=== PATIENT | male | born 1980 | race Caucasian/White ===

== ENCOUNTER → 2017-04-07 | Outpatient (CLI) | payer BC ==
[~2017-04-07] MED LIST: ALBU1AER9; LRT5 PO
--- NOTE | 2017-04-08 06:36 | SPLIT NIGHT TECHNICIAN REPORT ---
[facility] Split Night Polysomnogram - Fence Rider Report Study date: 04/07/2017 Referring Physician: DR DOOLEY Name: SHAVON HOWE Fence Rider: JENN Andre. Date of : 1980 Height: 36 years, Height 5' 11" Sex: Male Weight: 322 lbs Age: 36 Neck Circum: 19.75 INCHES BMI: Medications: 44.9 TRIAMTERENCE-HCTZ 37.5-25 MG, COZAAR 50 MG, FLONASE 50 MCG/ACT, PROAIR HFA 108 90 BASE Patient History PATIENT HAS HISTORY OF EXCESSIVE DAYTIME SLEEPINESS, TROUBLE STAYING AWAKE AT WORK AND SNORING. HE SAID THAT HE RECENTLY HAD A HOME SLEEP STUDY DONE BUT I HAD NO ACCESS TO THE RESULTS. HE IS HERE TODAY FOR AN EVALUATION FOR PATTI AND POSSIBLE SPLIT-STUDY. ESS = 14 RM 7 Parameters Monitored NPSG: E1-M2, E2-M1, Fp1-M2, Fp2-M1, F3-M2, F4-M2, F4-M1, C3-M2, C4-M2, C4-M1, O1-M2, O2-M2, O2-M1, T3-M2, T4-M1, P3-M2, P4-M1, CHIN1, CHIN2, HR, EKG, Legs, PFLOW, SNOR, FLOW, CFLOW, Tidal Volume, THOR, ABDO, SpO2, PLTH, CPRESS, ETCO2 Wave, ETCO2, pH SLEEP SUMMARY DATA DIAGNOSTIC TREATMENT Lights Out: 10:04:05 PM 12:41:05 AM Lights On: 12:30:05 AM 5:53:35 AM Total Recording Time (TRT): 146.5 min. 313.0 min. Total Sleep Time (TST): 124.5 min. 263.0 min. NREM Time: 124.5 min. 196.5 min. REM Time: 0.0 min. 66.5 min. Sleep Period Time (SPT): 130.5 min. 277.5 min. Sleep Efficiency (SE): 85 % 84 % Sleep Latency: 15.5 min. 34.0 min. Arousal Index: 27.0 4.3 PAP Treatment Levels: 4, 8, 9, 10, 11, 12 * Optimal Pressure(s) SLEEP STAGING DATA DIAGNOSTIC TREATMENT Duration (min) TST % Duration (min) TST % Stage Wake: 21.5 min. -- 50.0 min. -- WASO: 6.0 min. -- 14.5 min. -- NREM: 124.5 min. 100 % 196.5 min. 75 % Stage N1: 5.5 min. 4 % 8.5 min. 3 % Stage N2: 119.0 min. 96 % 160.0 min. 61 % Stage N3: 0.0 min. 0 % 28.0 min. 11 % REM: 0.0 min. 0 % 66.5 min. 25 % POSITIONAL DATA Event Count Index Event Count Index Supine: 2 120.0 0 0.0 Supine NREM: 2 120.0 0 0.0 Supine REM: N/A N/A N/A N/A Non-Supine: 234 113.7 16 4.8 Non-Supine NREM: 234 113.7 9 4.0 Non-Supine REM: N/A N/A 7 6.3 AROUSAL SUMMARY DATA: Event Count Index Event Count Index Apnea Arousals: 20 28.9 1 0.9 Hypopnea Arousals: 26 12.5 0 0.0 Snore Arousals: 7 3.4 1 0.2 PLM Arousals: 0 0.0 2 0.5 Non-Specific Arousals: 4 1.9 11 2.5 Total Arousals: 56 27.0 19 4.3 MYOCLONUS (PLM) Event Count Index Event Count Index PLM: 0 0.0 3 0.7 PLM AROUSAL: 0 0.0 2 0.5 PLM W/O AROUSAL 0 0.0 1 0.2 PLM W/RESP EVENT 0 0.0 0 0.0 MYOCLONUS (PLM) Event Count Index Event Count Index LM: 0 13.5 22 5.0 LM AROUSAL: 0 0.0 5 1.1 LM W/O AROUSAL LM W/RESP EVENT LM NON SPECIFIC 10 4.8 17 3.9 HEART RATE DATA DIAGNOSTIC TREATMENT Sleep (bpm): 74 78 REM (bpm): N/A 92 NREM (bpm): 85 92 Tachycardia Count: 0 0 Tachycardia Duration: 0.00 0 Bradycardia Count: 0 0 Bradycardia Duration: 0.00 0 DIAGNOSTIC PORTION TREATMENT PORTION RESPIRATORY DATA Event Count Index Event Count Index AHI: -- 113.7 -- 3.7 RDI: -- 113.7 -- 4 Obstructive Apnea: 59 28.4 0 0.0 Central Apnea: 0 0.0 4 0.9 Mixed Apnea: 1 0.5 0 0.0 Hypopnea: 176 84.8 12 2.7 RERA: 0 0.0 0 0.0 Total Apneas: 60 28.9 4 0.9 RESPIRATORY DATA REM NREM SLEEP REM NREM SLEEP Supine Position: Obstructive Apneas: N/A 0 0 N/A 0 0 Central Apneas: N/A 0 0 N/A 0 0 Mixed Apneas: N/A 0 0 N/A 0 0 Hypopneas: N/A 2 2 N/A 0 0 RERA N/A 0 0 N/A 0 0 Total Supine Events: N/A 2 2 N/A 0 0 Supine AHI: N/A 120.0 120.0 N/A 0.0 0.0 Supine RDI: N/A 120.0 120.0 N/A 0.0 0.0 REM NREM SLEEP REM NREM SLEEP Non-Supine Position: Obstructive Apneas: N/A 59 59 0 0 0 Central Apneas: N/A 0 0 0 4 4 Mixed Apneas: N/A 1 1 0 0 0 Hypopneas: N/A 174 174 7 5 12 RERA N/A 0 0 0 0 0 Total Supine Events: N/A 234 234 7 9 16 Supine AHI: N/A 113.7 113.7 6.3 4.0 4.8 Supine RDI: N/A 113.7 113.7 6.3 4.0 4.8 OXYGEN DESTAURATION DATA: Event Count Index Event Count Index REM Desaturations: N/A N/A 8 7.2 NREM Desaturations: 250 120.5 9 2.7 SNORE DATA DIAGNOSTIC TREATMENT Snore Time: 17.7 1:15:05 AM Snore TST%: 7 9 Snore Arousal Count: 7 1 Snore Arousal Index: 3.4 0.2 Desaturation Event Summary: Minimum %SpO2 Event Count Mean/Min/Max Duration(sec.) Desaturation Index % Time In Bed > 90 208 18.6 / 7.8 / 41.5 40.0 68.2 86 - 90 180 18.2 / 6.8 / 29.5 131.3 18.0 81 - 85 1 21.3 / 21.3 / 21.3 1.6 8.1 76 - 80 0 N/A 0.0 5.5 71 - 75 0 N/A 0.0 0.4 66 - 70 0 N/A 0.0 0.0 61 - 65 0 N/A 0.0 0.0 56 - 60 0 N/A 0.0 0.0 51 - 55 0 N/A 0.0 0.0 < 50 0 N/A 0.0 0.0 OXYGEN SATURATION DATA DIAGNOSTIC TREATMENT SpO2 Mean Sleep: 85 % 92 % SpO2 Mean REM: N/A % 92 % SpO2 Mean NREM: 85 % 92 % SpO2 Minimum Sleep: 73 % 84 % SpO2 Minimum REM: N/A % 85 % SpO2 Minimum NREM: 73 % 84 % Time Below 90% (TST): 90.7 9.1 Time Below 88% (TST): 73.2 2.4 Total REM NREM Awake <50% 0.0 min. 0.0 min. 0.0 min. 0.0 min. 51 - 60% 0.0 min. 0.0 min. 0.0 min. 0.0 min. 61 - 70% 0.0 min. 0.0 min. 0.0 min. 0.0 min. 71 - 80% 26.6 min. 0.0 min. 26.3 min. 0.3 min. 81 - 90% 119.1 min. 8.7 min. 101.1 min. 9.2 min. 91 - 100% 312.1 min. 57.8 min. 193.2 min. 61.1 min. Average 90 92 89 92 Minimum SpO2 73 85 73 78 Desaturation Event Index 36.1 7.2 48.4 9.3 # Desat. Events below 89% 266 6 255 5 Time(%) with Saturation below 89% 19.6 0.3 18.3 1.0 Time(min.) with Saturation below 89% 89.9 1.6 83.9 4.5 Recording Fence Rider Comments: Mr. Howe slept in the right, left and supine positions. No cardiac arrhythmia noted. Leg movements noted. No bruxism noted. Snoring was noted and scored as a 5 on a scale of 1 through 5. (0=no snoring, 5=snoring loud enough to be heard through a closed door or down the [address] way) At 12:30 am Mr. Howe has met specific Split-Night criteria during the diagnostic portion of this study. CPAP was initiated at +4 CMH2O and up-titrated to an optimal level of +12 CMH2O, which nearly eliminated all respiratory events and snoring. A Resmed Air touch F20 full face size large mask was used during titration Mr. Howe awoke to use the restroom 0 times during the night. Mr. Howe stated I slept as well as I do when I am in my own bed. The final report will be interpreted and signed by a sleep physician. The completed physician report will then be placed in the patient medical record. Therapy Event: Therapy (cm H20) 0 4 8 9 10 11 12 Total Time at Pressure (min.) 146.0 8.7 54.6 44.3 44.4 22.1 138.4 TST at Pressure (min.) 124.5 0.0 19.3 44.3 43.9 21.1 134.4 # Periods 1 1 1 1 1 1 1 Sleep Onset (min.) 15.5 N/A 25.3 0.0 0.0 0.0 0.0 REM Onset (min.) N/A N/A N/A 37.2 0.0 N/A 45.4 Sleep Efficiency % 85 0 35 100 98 95 97 Wakefulness (%) 14.7 100.0 64.7 0.0 1.1 4.5 2.9 Wakefulness (min.) 21.5 8.7 35.3 0.0 0.5 1.0 4.0 NREM 1 (%) 3.8 0.0 8.2 0.0 5.6 2.3 0.7 NREM 1 (min.) 5.5 0.0 4.5 0.0 2.5 0.5 1.0 NREM 2 (%) 81.5 0.0 27.1 36.7 22.4 93.2 71.1 NREM 2 (min.) 119.0 0.0 14.8 16.2 10.0 20.6 98.4 NREM 3 (%) 0.0 0.0 0.0 47.4 0.0 0.0 5.1 NREM 3 (min.) 0.0 0.0 0.0 21.0 0.0 0.0 7.0 REM (%) 0.0 0.0 0.0 15.9 70.8 0.0 20.2 REM (min.) 0.0 0.0 0.0 7.0 31.5 0.0 28.0 # Arousals 56 N/A 7 2 2 2 6 Arousal Index 27.0 N/A 21.8 2.7 2.7 5.7 2.7 # Snore 553 N/A 129 226 56 132 197 Snore Index 266.5 N/A 401.7 306.2 76.5 374.7 88.0 AHI 113.7 N/A 21.8 6.8 4.1 0.0 0.4 AHI Supine 120.0 N/A N/A N/A N/A N/A 0.0 AHI Non-Supine 113.7 N/A 21.8 6.8 4.1 0.0 0.8 NREM AHI 113.7 N/A 21.8 1.6 4.8 0.0 0.0 REM AHI N/A N/A N/A 34.1 3.8 N/A 2.1 RDI 113.7 N/A 21.8 6.8 4.1 0.0 0.4 # Obstructive 59 N/A 0 0 0 0 0 # Central Ap 0 N/A 4 0 0 0 0 # Mixed 1 N/A 0 0 0 0 0 # Hypopneas 176 N/A 3 5 3 0 1 RERAS 0 N/A 0 0 0 0 0 Total Respiratory Events 236 N/A 7 5 3 0 1 Time Below SpO2 89.00% (min.) 81.4 0.0 2.0 1.5 0.4 0.0 0.2 Mean NREM SpO2 (%) 85 N/A 90 91 91 91 92 Mean REM SpO2 (%) N/A N/A N/A 89 92 N/A 93 Mean Sleep SpO2 (%) 85 N/A 90 91 92 91 92 Min NREM SpO2 (%) 73 N/A 84 87 87 90 88 Min REM SpO2 (%) N/A N/A N/A 85 87 N/A 89 Position Supine (min.) 1.0 0.0 0.0 0.0 0.0 0.0 60.9 Position Non-supine (min.) 123.5 0.0 19.3 44.3 43.9 21.1 73.5 LM Index Sleep 13.5 N/A 3.1 1.4 15.0 14.2 3.1 LM Index NREM 13.5 N/A 3.1 0.0 4.8 14.2 2.3 LM Index REM N/A N/A N/A 8.5 19.1 N/A 6.4 Mean Heart Rate (bpm) 74 N/A 72 77 82 76 79 Min Heart Rate (bpm) 61 N/A 59 61 64 63 63
--- NOTE | 2017-04-12 08:18 | Sleep Study ---
Sleep Study Report Date of Service: 04/07/2017 Sleep Study Report Clinical data: The patient is referred by Dr. Agudelo for a sleep study. He is a 36-year-old male with a BMI of 44.9. He has symptoms including snoring, daytime sleepiness , disturbed nocturnal sleep. He had an [place] score of 14 out of a possible 24. The patient had breathing problems following a surgical procedure and sleep apnea was suspected. This was an in-lab split night sleep study. Sleep architecture: During the diagnostic portion of the study the total sleep period was 130.5 minutes. The total sleep time was 124.5 minutes. The sleep efficiency was 85 percent. The sleep latency was 15.5 minutes. Sleep consisted of stage N1 4 percent, stage N2 96 percent, stage N3 0 percent, stage REM 0 percent. During the therapeutic portion of the study the patient's nocturnal events were treated with nasal CPAP. The total sleep period was 277.5 minutes. The total sleep time was 263 minutes. The sleep efficiency was 84 percent. The sleep latency was 34 minutes. Sleep consisted of stage N1 3 percent, stage N2 61 percent, stage N3 11 percent, stage REM 25 percent. Arousal data: During the diagnostic portion of the sleep study the patient had a total of 56 arousals including 20 apnea arousals, 26 hypopnea arousals, 7 snoring arousals, and 4 nonspecific arousals. The arousal index was 27. During the therapeutic portion of the study the patient had 15 arousals including 1 apnea arousal, 1 snoring arousal, 2 PLM arousals, and 11 nonspecific arousals. The arousal index was 4.3. PLM data: During the diagnostic portion of the study the patient had 0 periodic limb movements. During the therapeutic portion of the study he had only 3 periodic limb movements for an index of 0.7. EKG data: The underlying cardiac rhythm was normal sinus. The cardiac rates 74-92 beats per minute. Respiratory data: During the diagnostic portion of the study patient had a total of 236 respiratory events including 59 obstructive apneas, 1 mixed apnea, and 176 hypopneas. Hypopneas were scored according to the 4 percent desaturation rule. The apnea-hypopnea index was severely elevated at 113.7 events per hour. During the therapeutic portion of the study the patient's nocturnal events were treated with nasal CPAP up to a final pressure of 12 centimeters. The patient had a total of 16 respiratory events including 4 central apneas and 12 hypopneas. The apnea-hypopnea index was 3.7 events per hour. At the final pressure of 12 centimeters the apnea-hypopnea index was 0.4. He was at that pressure for 138.4 minutes. Oximetry data: During the diagnostic portion of the study the mean saturation was 85 percent. The minimum saturation was 73 percent. There was a total of 73.2 minutes less than 88 percent. During the therapeutic portion of the study the mean saturation was 92 percent. The minimum saturation was 84 percent. There was a total of 2.4 minutes with saturations less than 88 percent. Patent Lawyer comments: Patient slept on the right, left, and supine positions. No cardiac arrhythmia noted. No bruxism noted. Snoring was noted and scored as a 5 on a scale of 1 through 5. At 12:30 a.m. the patient met specific split night criteria during the diagnostic portion of the study. CPAP was initiated at 4 centimeters and up titrated to an optimal level of 12 centimeters which nearly eliminated all respiratory events and snoring. A ResMed air touch F 20 full face mask size large was used during titration. The patient did not awaken to use the restroom at night. Impressions: 1. Obstructive sleep apnea-severe Comments: Patient had a split night study done. The diagnostic study showed severe sleep apnea as noted. He did very well with CPAP titration. His sleep was well consolidated once he finally was able to initiate sleep with CPAP in place. There was significant improvement in his sleep architecture. There was a dramatic improvement in the arousal index. The sleep apnea was totally resolved at a pressure of 12 centimeters. His oxygenation have normalized. Recommendations: 1. It is advised that the patient be started on nasal CPAP at 12 centimeters. 2. It is suggested that he be ordered a ResMed air touch F 20 full face mask size large 3. The patient has a severe elevation of body mass index at 44.9. A weight reduction program is advised. 4. The patient should be seen in follow-up between day 31 day 90 following the initiation of nasal CPAP therapy. Copies To 1: Joshua Webber DO; Abigail Renner D.O.; Lexie Agudelo D.O.
== END | disposition home or self-care (01) ==
LOC: C.NEUR 20:00
PROVIDERS: ATTEND Internal Medicine Sleep Medicine
DX: G47.33 Obstructive sleep apnea (adult) (pediatric) (principal); I10 Essential (primary) hypertension; G47.10 Hypersomnia, unspecified; Z68.41 Body mass index [BMI] 40.0-44.9, adult